=== PATIENT | male | born 2000 | race Asian ===

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

== ENCOUNTER 2021-07-05 22:31 | Emergency (ER) | payer OTHER, BC ==
[~2021-07-05] VITALS: Ht 175.3 cm; Wt 72.6 kg
[2021-07-06 01:18] VITALS: BP 123/70; TEMP 98.5
== END 2021-07-06 01:18 | disposition home or self-care (01) ==
LOC: ED 22:31
DX: S46.291A Other injury of muscle, fascia and tendon of other parts of biceps, right arm, initial encounter (principal); M79.18 Myalgia, other site; X50.0XXA Overexertion from strenuous movement or load, initial encounter; Y92.89 Other specified places as the place of occurrence of the external cause
CPT/HCPCS: 96372; 99283; J1885